=== PATIENT | female | born 1990 | race Caucasian/White ===

== ENCOUNTER 2017-06-22 08:38 | Outpatient (CLI) | payer MEDICAID ==
[~2017-06-22 08:38] MED LIST: PHENERGAN25 M3 PO; ZITHROMAX 250M250 MG PO
[2017-06-22 09:28] LABS: HEMOGLOBIN 12.6 g/dL (12.2-16.2)
[2017-06-22 10:35] LABS: ABO BLOOD TYPE O; RH BLOOD TYPE NEGATIVE
[2017-06-22 10:36] LABS: RHOGAM LOT # RHOGAM INFORMATION
[2017-06-22] MEDS ORDERED: PRENATAL PLUS1 TA1 PO (11:36)
== END 2017-06-22 11:53 | disposition home or self-care (01) ==
LOC: LAB 08:38
PROVIDERS: Nurse Practitioner Obstetrics & Gynecology
DX: Z34.00 Encounter for supervision of normal first pregnancy, unspecified trimester (principal)

== ENCOUNTER → 2017-08-27 | Outpatient (CLI) | payer MEDICAID ==
[~2017-08-27] MED LIST changes: +LABETALOL 100M100 MG PO; +PRENATAL PLUS1 TA1 PO
[2017-08-27 16:32] LABS: HEMOGLOBIN 12.6 g/dL (12.2-16.2); LYMPH # 1.8 K/mm3 (0.7-4.5); LYMPH % 19.3 % (10-50.0)
[2017-08-27 16:41] LABS: BUN 8 mg/dL (7-18)
[2017-08-27 16:46] LABS: GFR (ESTIMATED) 121 ML/MIN (59-)
== END ==
LOC: LAB 16:11
PROVIDERS: Nurse Practitioner Obstetrics & Gynecology
DX: Z34.80 Encounter for supervision of other normal pregnancy, unspecified trimester (principal)

== ENCOUNTER 2017-08-30 17:52 | Outpatient (CLI) | payer MEDICAID ==
[~2017-08-30] VITALS: Ht 172.7 cm; Wt 108.4 kg
[~2017-08-30 17:52] MED LIST changes: -LABETALOL 100M100 MG PO
[2017-08-30 18:13] VITALS: BP 136/81
[2017-08-30] MEDS ORDERED: LABETALOL 100M100 MG PO (18:16)
[2017-08-30 18:26] LABS: URINE BILIRUBIN - DIPSTICK NEGATIVE (NEG); URINE BLOOD NEGATIVE (NEG)
[2017-08-30 18:57] LABS: URINE SQUAMOUS CELLS 20-50 #/hpf (0-5)
== END 2017-08-30 18:41 | disposition home or self-care (01) ==
LOC: OBOUT 17:52 → OB 17:52 → OBOUT 18:41
PROVIDERS: Obstetrics & Gynecology
DX: O26.93 Pregnancy related conditions, unspecified, third trimester (principal); Z3A.37 37 weeks gestation of pregnancy

== ENCOUNTER 2017-09-02 15:59 | Inpatient (IN) | payer MEDICAID ==
[~2017-09-02] VITALS: Ht 172.7 cm; Wt 108.6 kg
[~2017-09-02 15:59] MED LIST changes: +LABETALOL 100M100 MG PO
--- OUTSIDE RECORDS SUMMARY | 2017-09-02 16:03 | External Medical Summary Rpt | CCD ---
Author Author , STEPHANIE BROWN Address Unknown Phone [email or web address] Purpose Continuity of Care Document - 06-22-2017 through 2016 Problems Code Diagnosis DOS Provider Status N72 INFLAMMATOR Y DISEASE OF CERVIX UTERI R11.10 VOMITING, UNSPECIFIED S83.519A SPRAIN OF ANTERIOR CRUCIATE LIGAMENT OF UNSP KNEE, INIT Results Labs Lab Lab Date Result Refere Interp Status Commen Order Detail nces retati t Range on Urinalysis with microscopy (08-30-2017 18:00) Comment: Collected by nurse? Y Comment: Hold specimen in OE? N Urine = OCC O complet leukocy 017 wbc/hpf ed mitzi 18:00 count (number /volume ) Squamou 20-50 0-5 complet s 017 20-50 L ed epithel 18:00 #/hpf ial cells detecti on in u Urine = 1.025 1.005-1 complet specifi 017 .030 ed c 18:00 gravity measure ment Erythro OCC OCC 0 complet cytes 017 L ed detecti 18:00 rbc/hpf on in urine sedimen t Urine = NEG complet protein 017 NEGATIV ed 18:00 E mg/dL measure ment by automat ed t Urine = 6.5 5.0-8.5 complet pH 017 ed 18:00 Urine NEGATIV NEG complet nitrite 017 E ed 18:00 NEGATIV detecti E L on by test strip Mucus TRACE NEG complet detecti 017 TRACE L ed on in 18:00 urine sedimen t by lig Urine NEGATIV NEG complet ketones 017 E ed 18:00 NEGATIV detecti E L on by mg/dL automat ed mitzi Hyaline OCC OCC NONE complet casts 017 L ed detecti 18:00 #/lpf on in urine sedimen Glucose 11-09-2 = NEG complet ur 017 NEGATIV ed test 18:00 E strip Urine YELLOW YELLOW complet color 017 YELLOW ed 18:00 L Urine NEGATIV NEG complet blood 017 E ed detecti 18:00 NEGATIV on E L Urine NEGATIV NEG complet total 017 E ed bilirub 18:00 NEGATIV in E L detecti on by test Bacteri 2+ 2+ L O complet a 017 ed detecti 18:00 on in urine sedimen t by Urine SL CLEAR complet appeara 017 CLOUDY ed nce 18:00 SL determi CLOUDY nation L Urine 0.2 0.2 NEG complet urobili 017 L ed nogen 18:00 E.U./dL detecti on by test str Amorpho 2+ 2+ L NONE complet us 017 ed sedimen 18:00 t detecti on in urine se Activated partial thromboplastin time (a (08-27-2017 16:12) Comment: TNP THE BLOODBANK TEST,PER OFFICE Activat = 27.3 23.6-34 complet ed 017 SECONDS .0 ed partial 16:12 thrombo plastin time (a Whole blood INR measurement (08-27-2017 16:12) Comment: TNP THE BLOODBANK TEST,PER OFFICE Prothro = 9.2 9.4-11. complet mbin 017 SECONDS 8 ed time 16:12 (PT) in platele t poor p Whole = 0.85 0.9-1.1 complet blood 017 ed INR 16:12 measure ment Comment: INDICATION INR RANGE Comment: Comment: THERAPY FOR DVT, PE, ATRIAL FIB; 2.0 - 3.0 Comment: PROPHYLAXIS FOR VTE Comment: Comment: THERAPY FOR MECHANICAL HEART 2.5 - 3.5 Comment: VALVE; PREVENTION OF SYSTEMIC Comment: EMBOLISM SECONDARY TO AMI Fibrinogen measurement in platelet poor (08-27-2017 16:12) Comment: TNP THE BLOODBANK TEST,PER OFFICE Fibrino = 500.0 204.2-4 complet gen 017 mg/dL 99.8 ed measure 16:12 ment in platele t poor D-dimer (08-27-2017 16:12) Comment: TNP THE BLOODBANK TEST,PER OFFICE D-dimer = 993 0-400 complet 017 ng/mL ed 16:12 Comment: NOTIFICATION RESULT Comment: The D-Dimer values are presented in units of mass(ng/mL) of Comment: D-Dimer units(DDU). Comment: Comment: This test has been FDA approved as an aid in the assessment Comment: and evaluation of suspected DIC, and thromboembolic events Comment: including PE and DVT. However, it does not have approval Comment: for cut-off values for the exclusion of these conditions. Serum or plasma uric acid measurement (m (08-27-2017 16:12) Comment: TNP THE BLOODBANK TEST,PER OFFICE Serum = 4.0 2.6-7.2 complet or 017 mg/dL ed plasma 16:12 uric acid measure ment (m ALT (SGPT) ser/plas (08-27-2017 16:12) Comment: TNP THE BLOODBANK TEST,PER OFFICE ALT = 15 12-78 complet (SGPT) 017 U/L ed ser/piper 16:12 s Serum or plasma aspartate aminotransfera (08-27-2017 16:12) Comment: TNP THE BLOODBANK TEST,PER OFFICE Serum = 11 15-37 complet or 017 U/L ed plasma 16:12 asparta te aminotr ansfera Basic metabolic panel (08-27-2017 16:12) Comment: TNP THE BLOODBANK TEST,PER OFFICE Serum = 135 136-145 complet sodium 017 mmoL/L ed measure 16:12 ment Serum = 3.6 3.5-5.1 complet potassi 017 mmoL/L ed um 16:12 measure ment Serum = 85 74-106 complet or 017 mg/dL ed plasma 16:12 glucose measure ment (mas Estimat = 121 59- complet ed 017 ML/MIN ed glomeru 16:12 lar filtrat ion rate (GF Comment: REFERENCE RANGE: >60 ML/MIN/1.73 SQUARE METERS Comment: If this patient is -Icelandic, then multiply the Comment: result by 1.210. Serum = 0.6 0.55-1. complet or 017 mg/dL 02 ed plasma 16:12 creatin ine measure ment ( Carbon = 20 21.0-32 complet dioxide 017 mmoL/L .0 ed 16:12 measure ment Serum = 105 98-107 complet or 017 mmoL/L ed plasma 16:12 chlorid e measure ment (mo Serum = 9.0 8.5-10. complet or 017 mg/dL 1 ed plasma 16:12 calcium measure ment (mas Serum = 8 7-18 complet or 017 mg/dL ed plasma 16:12 urea nitroge n measure men Blood type and screen (08-27-2017 16:12) Comment: TNP THE BLOODBANK TEST,PER OFFICE Blood TNP TNP complet ABO 017 L ed group 16:12 typing Rh TNP TNP complet blood 017 L ed group 16:12 typing Materna TNP TNP NEGATIV complet l 017 L E ed antibod 16:12 y screen CBC w auto diff (08-27-2017 16:12) Comment: TNP THE BLOODBANK TEST,PER OFFICE Absolut = 0.5 0.1-1.0 complet e 017 K/mm3 ed monocyt 16:12 e count Automat = 86.0 82.2-97 complet ed 017 fl .8 ed erythro 16:12 cyte mean corpusc ular v Automat = 34.4 31.8-35 complet ed 017 g/dl .4 ed erythro 16:12 cyte mean corpusc ular h Mean = 29.6 27-31.2 complet corpusc 017 pg ed ular 16:12 hemoglo bin (MCH) determ Lymphoc = 19.3 10-50.0 complet yte 017 % ed count, 16:12 blood, automat ed Absolut = 1.8 0.7-4.5 complet e 017 K/mm3 ed lymphoc 16:12 yte count Blood = 12.6 12.2-16 complet hemoglo 017 g/dL .2 ed bin 16:12 measure ment (mass/v olum Blood = 36.5 37.0-47 complet hematoc 017 % .0 ed rit 16:12 (volume fractio n) Granulo = 74.1 37.0-80 complet cyte 017 % .0 ed percent 16:12 age Blood = 7.1 1.8-7.8 complet granulo 017 K/mm3 ed cytes 16:12 automat ed count (numb Automat = 1.5 % 0.1-12. complet ed 017 0 ed blood 16:12 eosinop hils/10 0 leukocy t Automat = 0.1 0.0-0.4 complet ed 017 K/mm3 ed blood 16:12 eosinop hil count Baso % = 0.2 % 0.1-2.0 complet 017 ed 16:12 Automat = 0.0 0-0.2 complet ed 017 K/MM3 ed blood 16:12 basophi l count (count/ vo Blood = 9.6 4.8-10. complet leukocy 017 K/MM3 8 ed mitzi 16:12 count (number /volume ) Automat = 13.5 11.5-17 complet ed 017 % .5 ed erythro 16:12 cyte distrib ution width Red = 4.25 4.2-5.4 complet blood 017 M/mm3 ed cell 16:12 count Blood = 210 142-424 complet platele 017 K/mm3 ed t count 16:12 Automat = 8.9 7.4-10. complet ed 017 fl 4 ed blood 16:12 platele t mean volume james [place] % = 4.9 % 1.7-9.3 complet 017 ed 16:12 Maternal whole blood cell screen f (06-22-2017) Materna RHOGAM complet l whole 017 RELEASE ed blood RHOGAM cell RELEASE screen L f Comment: RHOGAM LOT# : [id number] RELEASED 07/28/17 1422 Boyers,Mikala Comment: Comment: EXP: 07/22/17
--- OUTSIDE RECORDS SUMMARY | 2017-09-02 16:03 | External Medical Summary Rpt | CCD ---
Demographics Preferred Language Par[place]ayan Marital Status Unknown Jew Affiliation Unknown Race Unknown Ethnic Group Unknown Author Author , STEPHANIE BROWN Address Unknown Phone Immunization No patient found.
--- OUTSIDE RECORDS SUMMARY | 2017-09-02 16:03 | External Medical Summary Rpt | CCD ---
Author Author [employer] Organization [employer] Address Unknown Phone Unavailable Purpose Continuity of Care Document - through 2016
--- OUTSIDE RECORDS SUMMARY | 2017-09-02 16:03 | External Medical Summary Rpt | CCD ---
Demographics Preferred Language [place] Marital Status Unknown Mormon Affiliation Unknown Race Unknown Ethnic Group Unknown Author Author , STEPHANIE BROWN Address Unknown Phone Immunization No patient found.
--- OUTSIDE RECORDS SUMMARY | 2017-09-02 16:03 | External Medical Summary Rpt | CCD ---
Author Author , STEPHANIE BROWN Address Unknown Phone [email or web address] Purpose Continuity of Care Document - 06-22-2017 [...] SQUARE METERS Comment: If this patient is -Jamaican, then multiply the Comment: result by 1.210. [...] blood 16:12 platele t mean volume james [place] % = 4.9 % 1.7-9.3 complet 017 ed 16:12 Maternal whole blood cell screen f (06-22-2017) Materna RHOGAM complet l whole 017 RELEASE ed blood RHOGAM cell RELEASE screen L f Comment: RHOGAM LOT# : [id number] RELEASED 07/28/17 1422 Boyers,Mikala Comment: Comment: EXP: 07/22/17
[2017-09-02 17:19] VITALS: BP 135/81
[2017-09-02 17:19] LABS: HEMOGLOBIN 12.6 g/dL (12.2-16.2); LYMPH # 1.9 K/mm3 (0.7-4.5); LYMPH % 17.6 % (10-50.0)
[2017-09-02 17:44] LABS: AMPHETAMINES/METAMPHETAMINES NEGATIVE ng/mL (<1000)
[2017-09-02 18:17] LABS: ABO BLOOD TYPE O; RH BLOOD TYPE NEGATIVE
[2017-09-02 19:16] VITALS: BP 137/78
[2017-09-03 07:50] VITALS: BP 127/67
--- NOTE | 2017-09-03 08:05 | LABOR NOTE ---
Laboring Subjective Subjective Date 09/03/17 Time 0803 Subjective: Pt is having regular contractions Laboring Objective Objective NST: Reactive Contractions: q 2-3 minutes Cervical dilation: 2-3 Effacement: 75% Station: -2 Membranes are: Artificially ruptured (with clear fluid) Fetus monitoring? Yes Type: Internal and External Comment: IUPC INSERTED Laboring Assessment Assessment Progressing? Yes Cephalopelvic disproportion? No Problem List: 1. Delivery normal 2. Post-dates Laboring Plan Plan Anethesia for epidural? No Continue to labor down? Yes Plan for ? No Continue to monitor? Yes Start pushing? No at 0804
--- NOTE | 2017-09-03 10:47 | LABOR NOTE ---
Laboring Subjective Subjective Date 09/03/17 Time 1045 Subjective: Pt is having regular contractions Laboring Objective Objective NST: Reactive Contractions: q 2-3 minutes Cervical dilation: 3-4 Effacement: 75% Station: -1 Membranes are: Artificially ruptured (with clear fluid) Fetus monitoring? Yes Type: Internal and External Laboring Assessment Assessment Progressing? Yes Cephalopelvic disproportion? No Problem List: 1. Delivery normal 2. Pre-eclampsia Laboring Plan Plan Anethesia for epidural? Yes Continue to labor down? Yes Plan for ? No Continue to monitor? Yes Start pushing? No at 1042
[2017-09-03 12:40] LABS: URINE BILIRUBIN - DIPSTICK NEGATIVE (NEG); URINE BLOOD NEGATIVE (NEG)
--- NOTE | 2017-09-03 13:32 | LABOR NOTE ---
Laboring Subjective Subjective Date 09/03/17 Time 1331 Subjective: Pt is having regular contractions Laboring Objective Objective NST: Reactive Contractions: q 2-3 minutes Cervical dilation: 3-4 Effacement: 75% Station: -1 Membranes are: Artificially ruptured Fetus monitoring? Yes Type: Internal and External Laboring Assessment Assessment Progressing? No Cephalopelvic disproportion? No Problem List: 1. Pre-eclampsia 2. Delivery normal Laboring Plan Plan Anethesia for epidural? Yes Continue to labor down? Yes Plan for ? No Continue to monitor? Yes Start pushing? No Comment: not any progress in last 3 hours, if no change in next couple of hours, c/ section at 1339
--- NOTE | 2017-09-03 15:44 | LABOR NOTE ---
Laboring Subjective Subjective Date 09/03/17 Time 1543 Subjective: Pt is having regular contractions Laboring Objective Objective NST: Reactive Contractions: q 2-3 minutes Cervical dilation: 3-4 Effacement: 50% Station: -2 Membranes are: Artificially ruptured Fetus monitoring? Yes Type: Internal and External Laboring Assessment Assessment Progressing? No Cephalopelvic disproportion? Yes Problem List: 1. Pre-eclampsia 2. Delivery normal Laboring Plan Plan Anethesia for epidural? Yes Continue to labor down? No Plan for ? Yes Continue to monitor? Yes Start pushing? No Comment: She really has not progressed over the last few hours. She has been 3-4 cm since 10:30 this morning. As result that we will go ahead with a primary lower segment transverse section. We discussed the risks of surgery that includes bleeding, infection, injuries to the bowel and bladder. We discussed the rare risk of DVT. All questions were answered and consents were signed. at [id number]
--- NOTE | 2017-09-03 20:18 | Operative Note ---
Procedure/Operative Record Procedure Date of procedure: 09/03/17 Pre-Op Dx: Fetopelvic disproportion, induced hypertension Post-Op Dx: Fetopelvic disproportion, -induced hypertension Procedure performed: Primary lower segment transverse section, B Kwok suture Surgeon: Dr. Seven Moseley Mobile Qa Tester(s): Dr. Limon Anesthesia: Abdualziz Olivier EBL (ml): 600 Clinical note: She is a 27-year-old 1 now para 0 who was 38+ weeks gestational age. She has been followed in my office and her blood pressure has been elevated over the last couple of weeks. We have placed her on labetalol but she continued to have elevated blood pressure. -induced hypertension workup was negative but given her rising blood pressure we elected to induce her labor. She was started on Cervidil in the evening of September 02, 2017. The following morning she was started on IV oxytocin and had her membranes ruptured. She really failed to progress beyond 3-4 cm. She was having regular contractions. After having discussed the risk and benefits we elected to perform a primary lower segment transverse section for fetopelvic disproportion. Operative findings: She delivered a live-born male child at 7:46 PM of September 03, 2017. The baby had Apgars of 9 at 1 minute and 9 at 5 minutes. PH was 7.40. Ovaries and tubes appeared normal. The uterus was somewhat boggy after her delivery and we elected to place a B Kwok suture. Operative note: She was taken to the operating room where epidural anesthesia was found be adequate. She was prepped and draped in normal sterile fashion in the supine position with a leftward tilt. A Ibarra catheter was in the bladder. A Pfannenstiel skin incision was made with knife then carried through to the underlying layer of fascia with cautery. The fascia was opened in the midline with cautery and extended laterally using Serrano scissors. [place] clamps were applied to the superior aspect of the fascial incision which was tented up and the underlying rectus muscles dissected off using cautery. The [place] clamps were then applied to the inferior aspect of the fascial incision which in a similar fashion was tented up and the underlying rectus muscles dissected off using cautery. The rectus muscles were then in the midline, the peritoneum identified, and entered sharply with Metzenbaum scissors. This incision was then extended superiorly and inferiorly with cautery. We had good visualization of the bladder inferiorly. The bladder peritoneum was then opened in the midline and extended laterally using Metzenbaum scissors. A bladder flap was created digitally. The lower blade of the [place] was inserted so as to push the bladder out of the way. Transverse incision was made through the uterine muscle to the amnion. This incision was then extended laterally using fingers traction. The amnion was entered sharply with knife. The infant's head was then delivered atraumatically. This was followed by the anterior shoulder and the rest of the 's body atraumatically. The oropharynx and nasopharynx were bulb suctioned. The was then handed off to Dr. Elizalde who assigned Apgars of 9 at 1 minute and 9 at 5 minutes. We then obtained cord blood as well as cord pH. Using gentle traction on the cord and countertraction on the fundus I was able to easily deliver the placenta intact. It had a normal three-vessel cord. The uterus was then cleared of clots and debris and exteriorized from the abdominal cavity. The uterine incision was then closed using running 0 Vicryl suture in a locked fashion. A second layer of the same suture was used to imbricate the first layer. The bladder peritoneum was then closed using running 2-0 Vicryl suture in a locked fashion. The gutters and cul-de-sac were then cleared of clots and debris and the uterus was returned the abdominal cavity. Once again hemostasis was assured. The peritoneum was grasped with Joseline clamps and closed using running 2-0 Vicryl suture. The rectus muscles were then reapproximated using running 0 Vicryl suture. The fascia was closed using running #1 Vicryl suture. The subcutaneous tissues were then irrigated with warm water followed by closure Jeannine's fascia using running 2-0 Monocryl suture. The skin was closed with les. The incision was then cleaned with Hibiclens. Sterile dressings were applied. She tolerated the procedure well and was taken to the recovery room in excellent condition. All sponges minute and needle counts were correct. Estimate a blood loss was approximately 600 mL. Conplications: None Specimens: Products of conception at 2017
--- NOTE | 2017-09-03 20:28 | Anesthesia Record ---
Anesthesia Record Part I Total IV fluids: 1500 EBL (ml): 600 Urine Output: 300 B/P: 144/74 % SaO2: 99 Pulse: 82 Resps: 12 Temp: 98.7 Patient is: Awake, Stable Stable to PACU at: 2020 at 202
--- NOTE | 2017-09-03 20:29 | Anesthesia Record ---
Anesthesia Record Part II Discharge time: 2049 Destination: OB PACU nurse assessment review? Yes Patient is: Awake, Stable Anesthesia complications? No at 2028
[2017-09-03 22:00] VITALS: BP 147/88
[2017-09-04 07:55] LABS: HEMOGLOBIN 11.3 g/dL (12.2-16.2)
[2017-09-04 08:56] LABS: ABO BLOOD TYPE O; RH BLOOD TYPE NEGATIVE
[2017-09-04 08:58] LABS: FETALSCREEN NEGATIVE (NEGATIVE)
[2017-09-04 09:45] VITALS: BP 123/70
--- NOTE | 2017-09-04 10:16 | ACUTE CARE PROGRESS NOTE (QUA) ---
Progress Notes Subjective Date 09/04/17 Time 1014 Note She is doing well this morning. She is eating and drinking and ambulating. She is breast-feeding. Her lochia is normal. Her pain is reasonably well-controlled. Patient/family reports: feeling better, pain Objective Findings Last VS-Temp:97.7 B/P:123/70 Pulse:97 Resp:18 SaO2:98 ROOM AIR Last weight lbs:239 oz:6 K.580 Method:Floor Scales Laboratory Tests 09/04/17 0906: RhIG Dose Recommended RHOGAM RELEASE 09/04/17 0628: Hgb 11.3 L, Hct 33.1 L 09/03/17 1953: Cord Blood pH 7.40 Exam General appearance: normal appearance, alert, awake, no acute distress Reviewed: vital signs, lab results Assessment/Plan Problem List 1. Pre-eclampsia 2. Fetopelvic disproportion Patient condition Improving, Stable Plan: continue current care This inpt stay is expected to cross 2 MNs from start of care Yes Comments: She is doing very well. We will plan to send her home in 48 hours. at 1016
--- NOTE | 2017-09-04 11:26 | PHARMACY CLINIC NOTE ---
Patient Demographics Patient Demographics Admission date: 09/02/17 Date: 09/04/17 Time: 1125 Allergies Coded Allergies: No Known Drug Allergies (-- 09/03/17) HEIGHT- FT: 5 IN: 8.00 K.580 VTE General Information Labs: Laboratory Tests 09/04 0628 Hematology Hgb (12.2 - 16.2 g/dL) 11.3 L Hct (37.0 - 47.0 %) 33.1 L Disclaimer The following section includes nursing documentation that has been pulled in for pharmacy review. VTE prophylaxis NQF [id number] VTE prophylaxis ordered? Yes Type of prophylaxis/treatment: MICHELLE at 1128
--- NOTE | 2017-09-05 08:34 | ACUTE CARE PROGRESS NOTE (QUA) ---
Progress Notes Subjective Date 09/05/17 Time 0833 Note She continues to do very well. She is eating and drinking and ambulating. She is breast-feeding. Her lochia is normal. Patient/family reports: feeling better, no complaints Objective Findings Last VS-Temp:97.7 B/P:123/70 Pulse:97 Resp:18 SaO2:98 ROOM AIR Last weight lbs:239 oz:6 K.580 Method:Floor Scales Laboratory Tests 09/04/17 0906: RhIG Dose Recommended RHOGAM RELEASE 09/04/17 0628: Hgb 11.3 L, Hct 33.1 L 09/03/17 1953: Cord Blood pH 7.40 09/03/17 0957: Urine Color YELLOW, Urine Appearance CLEAR, Urine pH 7.5, Ur Specific [place] 1.010, Urine Protein NEGATIVE, Urine Ketones NEGATIVE, Urine Blood NEGATIVE, Urine Nitrate NEGATIVE, Urine Bilirubin NEGATIVE, Urine Urobilinogen 0.2, Ur Leukocyte Esterase NEGATIVE, Urine RBC NONE, Urine WBC 3-5, Ur Squamous Epith Cells 3-5, Urine Bacteria TRACE, Urine Glucose NEGATIVE 09/03/17 0628: RBC Rosibel Test NEGATIVE, Antibody Screen NEGATIVE, Miscellaneous Test NEGATIVE 09/02/17 1705: MCH 29.5 09/02/17 1705: WBC 10.9 H, RBC 4.29, Hgb 12.6, Hct 37.2, MCV 86.7, RDW 13.7, Plt Count 221, MPV 9.0, Gran % 75.2, Gran # 8.2 H, Lymphocytes % 17.6, Monocytes % 5.7, Eosinophils % 1.4, Basophils % 0.2, Lymphocytes # 1.9, Monocytes # 0.6, Eosinophils # 0.2, Basophils # 0.0, PUBS MCHC 34.0, Antibody Screen NEGATIVE, Miscellaneous Test NEGATIVE 09/02/17 1610: Opiates Screen NEGATIVE, Urine Methadone Screen NEGATIVE, Barbiturates NEGATIVE, Phencyclidine Screen NEGATIVE, Amphetamines Screen NEGATIVE, Benzodiazepines Screen NEGATIVE, Cocaine Screen NEGATIVE, Marijuana (THC) Screen NEGATIVE Exam General appearance: normal appearance, alert, awake, no acute distress Reviewed: vital signs, lab results Assessment/Plan Problem List 1. Pre-eclampsia 2. Fetopelvic disproportion Patient condition Improving, Stable Plan: continue current care This inpt stay is expected to cross 2 MNs from start of care Yes Comments: She is doing very well and we will plan to send her home tomorrow. at 0865
[2017-09-05 19:20] VITALS: BP 150/82
--- NOTE | 2017-09-06 08:06 | Discharge Summary ---
Discharge Summary Admission date: 09/03/17 Discharge date: 09/06/17 Discharge diagnoses: Mild induce hypertension versus chronic hypertension, fetopelvic disproportion, primary lower segment transverse section Clinical note: She is a 27-year-old 1 now para 1 who was 38 and 2 weeks gestational age. She has been followed recently prior to delivery for increased blood pressure. Her blood pressure continued to be elevated so we elected to bring her in for induction of labor at term. Course in hospital: She was started on IV oxytocin and had her membranes ruptured. She really failed to progress beyond about 4 cm. As result of that pelvic disproportion was diagnosed. She was taken for a primary lower segment transverse section on September 03, 2017. She delivered a live-born male child at 7:46 PM in the evening of September 03, 2017. The baby weighed 7 lbs. 12 oz. and was 20 inches long. He had Apgars of 9 at 1 and 9 at 5 minutes. She has done well post operatively and has remained afebrile throughout her hospitalization. She is eating and drinking and ambulating. She is breast- feeding. She has O negative blood, she is rubella immune and was group B streptococcus negative. She has received RhoGam. Laboratory Tests 09/04/17 0906: RhIG Dose Recommended RHOGAM RELEASE 09/04/17 0628: Hgb 11.3 L, Hct 33.1 L 09/03/17 1953: Cord Blood pH 7.40 09/03/17 0957: Urine Color YELLOW, Urine Appearance CLEAR, Urine pH 7.5, Ur Specific [place] 1.010, Urine Protein NEGATIVE, Urine Ketones NEGATIVE, Urine Blood NEGATIVE, Urine Nitrate NEGATIVE, Urine Bilirubin NEGATIVE, Urine Urobilinogen 0.2, Ur Leukocyte Esterase NEGATIVE, Urine RBC NONE, Urine WBC 3-5, Ur Squamous Epith Cells 3-5, Urine Bacteria TRACE, Urine Glucose NEGATIVE Plans for ongoing care: She is discharged home to follow-up with me in approximately 2 weeks' time. Discharge medications She will continue with her vitamins and iron. She was given a prescription for hydromorphone 2 mg, 20 tablets. She was given a pressure for for ibuprofen. DC/follow-up instructions She was given the usual instructions with respect to limiting her activity, driving and sexual activity. She was given instructions with respect to wound care. Condition at discharge Stable and improved at 0806
[2017-09-06] MEDS ORDERED: HYDROMORPHONE2 MG PO (08:07)
[2017-09-06] MEDS ORDERED: MOTRIN 400MG.400 MG PO (08:08)
[2017-09-06] MEDS ORDERED: NICOTINE T21 MG/24 H TD (08:08)
== END 2017-09-06 11:15 | disposition home or self-care (01) | DRG 765 ==
LOC: OB 15:59
PROVIDERS: Nurse Practitioner Obstetrics & Gynecology; Obstetrics & Gynecology
PROC: 10D00Z1 Extraction of Products of Conception, Low, Open Approach (ICD-10-PCS; principal; 2017-09-03 18:00)
DX: O10.913 Unspecified pre-existing hypertension complicating pregnancy, third trimester (principal); O13.3 Gestational [pregnancy-induced] hypertension without significant proteinuria, third trimester; O65.4 Obstructed labor due to fetopelvic disproportion, unspecified; Z37.0 Single live birth; Z3A.38 38 weeks gestation of pregnancy
CPT/HCPCS: C1758; G0238; J2405; J2790